=== PATIENT | female | born 1935 ===

== ENCOUNTER 2017-10-17 13:04 | Emergency (ER) | payer MEDICARE ==
--- NOTE | 2017-10-17 13:53 | ED PDOC ---
HPI: General Adult Time Seen by Provider: 10/17/17 13:22 Chief Complaint (Nursing): Back Pain Chief Complaint (Provider): Mental Status Change History Per: Patient, Family (daughter) History/Exam Limitations: no limitations Onset/Duration Of Symptoms: Days Current Symptoms Are (Timing): Still Present Additional Complaint(s): 81 y/o female with a PMHx of HTN presenting for evaluation of mental status change. According to patients daughter, who is a nurse at this hospital, the patient has had intermittent confusion at home and during recent travels where she is unsure where she is. She reports patient was brought to her PMD 3-4 days ago without complaint. She states the patient received a mental status exam and a referral to a neurologist. Patient later began to complain of right sided flank pain and today received an outpatient kidney US which preliminarily showed possible stones. Symptoms led daughter to suspect a possible urinary tract problem and confusion. Daughter reports no fever, nausea, vomiting, diarrhea, or abdominal pain. Patient denies any frequency or dysuria. PMD: Jeffrey Wheatley Past Medical History Reviewed: Historical Data, Nursing Documentation, Vital Signs Vital Signs: Last Vital Signs Temp 98.4 F 10/17/17 13:12 Pulse 63 10/17/17 13:12 Resp 16 10/17/17 13:12 BP 125/72 10/17/17 13:12 Pulse Ox 99 10/17/17 14:42 - Medical History PMH: Arthritis, HTN, Hypercholesterolemia Denies: Chronic Kidney Disease - Surgical History Other surgeries: Hysterectomy - Family History Family History: States: Unknown Family Hx - Social History Current smoker - smoking cessation education provided: No Alcohol: None - Home Medications Home Medications: Ambulatory Orders Medication Instructions Recorded Ammonium Lactate [Amlactin] 1 appl TOP DAILY 09/11/14 Aspirin [Aspirin EC] 81 mg PO DAILY 09/11/14 Clobetasol 0.05% [Temovate CREAM] 1 appl TOP BID PRN 09/11/14 Cyclosporine [Restasis] 1 drop EACHEYE Q12H 09/11/14 Diclofenac Sodium [Voltaren Gel] 1 appl TOP TID 09/11/14 Esomeprazole Magnesium [Nexium] 20 mg PO DAILY 09/11/14 Lisinopril/Hydrochlorothiazide 1 tab PO DAILY 09/11/14 [Lisinopril-Hctz 20-12.5 mg Tab] Loratadine 10 mg PO DAILY 09/11/14 Metoprolol Succinate XL [Toprol XL] 50 mg PO DAILY 09/11/14 Montelukast [Singulair] 10 mg PO HS 09/11/14 Naproxen 500 mg PO BID PRN 09/11/14 Olopatadine 0.1% Opht [Patanol 1 drop EACHEYE BID 09/11/14 0.1% Opht Soln] Cmdyq-8-Incl Ethyl Esters [Lovaza] 1 gm PO BID 09/11/14 Simvastatin [Zocor] 40 mg PO HS 09/11/14 Digoxin [Digitek] 0.25 mg PO DAILY #30 tab 09/12/14 Docusate [Colace] 100 mg PO BID PRN #0 cap 09/12/14 - Allergies Allergies/Adverse Reactions: Allergies Allergy/AdvReac Type Severity Reaction Status Date / Time No Known Allergies Allergy Verified 09/11/14 13:54 Review of Systems ROS Statement: Except As Marked, All Systems Reviewed And Found Negative Constitutional: Positive for: Fever. Negative for: Chills Gastrointestinal: Negative for: Nausea, Vomiting, Abdominal Pain, Diarrhea Genitourinary Female: Negative for: Dysuria, Frequency, Incontinence, Hematuria Physical Exam - Reviewed Nursing Documentation Reviewed: Yes Vital Signs Reviewed: Yes - Physical Exam Appears: Positive for: Non-toxic, No Acute Distress Head Exam: Positive for: ATRAUMATIC, NORMAL INSPECTION, NORMOCEPHALIC Skin: Positive for: Normal Color, Warm, Dry. Negative for: Rash Eye Exam: Positive for: EOMI, Normal appearance, PERRL ENT: Positive for: Normal ENT Inspection Neck: Positive for: Normal, Painless ROM, Supple Cardiovascular/Chest: Positive for: Regular Rate, Rhythm. Negative for: Murmur Respiratory: Positive for: Normal Breath Sounds. Negative for: Respiratory Distress Gastrointestinal/Abdominal: Positive for: Normal Exam, Soft. Negative for: Tenderness Back: Positive for: Normal Inspection. Negative for: L CVA Tenderness, R CVA Tenderness, Vertebral Tenderness Extremity: Positive for: Normal ROM. Negative for: Pedal Edema, Deformity Neurologic/Psych: Positive for: Alert, Oriented. Negative for: Motor/Sensory Deficits - Laboratory Results Result Diagrams: 10/17/17 14:00 10/17/17 14:00 - ECG O2 Sat by Pulse Oximetry: 99 (RA) Pulse Ox Interpretation: Normal Medical Decision Making Medical Decision Makin:28 Impression: Subjective mental status change. Differential diagnoses include, but are not limted to infection such as UTI, pyelonephritis, hydronephrosis, and renal colic. Plan: -CMP -Urine dipstick -CBC w/ differential -Heplock -Urinalysis -Reevaluation Scribe Attestation: Documented by Maurisio Alvarez, acting as a scribe for Farnaz Worthy MD. Provider Scribe Attestation: All medical record entries made by the Scribe were at my direction and personally dictated by me. I have reviewed the chart and agree that the record accurately reflects my personal performance of the history, physical exam, medical decision making, and the department course for this patient. I have also personally directed, reviewed, and agree with the discharge instructions and disposition. Disposition - Clinical Impression Clinical Impression: Memory change - Patient ED Disposition Is Patient to be Admitted: Transfer of Care - Disposition Disposition: Transfer of Care Disposition Time: 14:47 Condition: FAIR Instructions: Mild Cognitive Impairment Forms: [employer] (Thai) Patient Signed Over To: Chery Anton Present On Arrival: None
[2017-10-17 14:12] LABS: BASO % 0.4 % (0.0-2.0); EOS % 0.1 % (0.0-4.0); HEMOGLOBIN 10.4 g/dL (12.0-16.0); LYMPH # 1.6 K/uL (1.0-4.3); LYMPH % 34.8 % (20.0-40.0); MEAN CELL VOLUME 80.7 fl (81.0-99.0); MEAN CORPUSCULAR HEMOGLOBIN 27.2 pg (27.0-31.0); MEAN CORPUSCULAR HGB CONC 33.8 g/dL (33.0-37.0); MONO # 0.3 K/uL (0.0-0.8); MONO % 7.7 % (0.0-10.0); NEUT # 2.6 K/uL (1.8-7.0); NRBC % 0.2 % (0.0-0.0); RBC 3.81 Mil/uL (3.80-5.20); RED CELL DISTRIBUTION WIDTH 14.1 % (11.5-14.5); WHITE BLOOD COUNT 4.5 K/uL (4.8-10.8)
[2017-10-17 14:26] LABS: ALB/GLOB RATIO 1.3 (1.0-2.1); ALBUMIN 4.1 g/dL (3.5-5.0); ALT/SGPT 28 U/L (9-52); AST/SGOT 34 U/L (14-36); BLOOD UREA NITROGEN 15 mg/dl (7-17); CALCIUM 9.7 mg/dL (8.4-10.2); GFR AFRICAN-AMERICAN > 60; GFR NON-AFRICAN AMERICAN > 60
[2017-10-17 15:24] LABS: SQUAMOUS EPITHIAL < 1 /hpf (0-5); URINE BILIRUBIN NEGATIVE (NEGATIVE); URINE BLOOD NEGATIVE (NEGATIVE); URINE CLARITY CLEAR (Clear); URINE COLOR STRAW (YELLOW); URINE GLUCOSE (UA) NEG (Normal); URINE LEUKOCYTE ESTERASE SMALL Leu/uL (Negative); URINE PROTEIN NEGATIVE (NEGATIVE); URINE UROBILINOGEN 0.2-1.0 mg/dL (0.2-1.0)
--- NOTE | 2017-10-17 15:52 | CT ---
Date of service: 10/17/2017 PROCEDURE: CT HEAD WITHOUT CONTRAST. HISTORY: acute onset of memory loss COMPARISON: None available. TECHNIQUE: Axial computed tomography images were obtained through the head/brain without intravenous contrast. Radiation dose: Total exam DLP = mGy-cm. This CT exam was performed using one or more of the following dose reduction techniques: Automated exposure control, adjustment of the mA and/or kV according to patient size, and/or use of iterative reconstruction technique. FINDINGS: HEMORRHAGE: No intracranial hemorrhage. BRAIN: No mass effect or edema. No atrophy or chronic microvascular ischemic changes. VENTRICLES: Unremarkable. No hydrocephalus. CALVARIUM: Unremarkable. PARANASAL SINUSES: Unremarkable as visualized. No significant inflammatory changes. MASTOID AIR CELLS: Unremarkable as visualized. No inflammatory changes. OTHER FINDINGS: None. IMPRESSION: Normal CT of the Head.
--- NOTE | 2017-10-17 16:18 | ED PDOC ---
- Laboratory Results Result Diagrams: 10/17/17 14:00 10/17/17 14:00 - ECG O2 Sat by Pulse Oximetry: 99 (RA) Pulse Ox Interpretation: Normal Medical Decision Making Medical Decision Making: Time: 1500 -- Received endorsement from Dr. Worthy. Patient brought to the ED for episode of memory loss, pending ER workup, re-assessment and final ER disposition. Lab results are unremarkable except for mild anemia. Time: [address] RESULTS FINDINGS: HEMORRHAGE: No intracranial hemorrhage. BRAIN: No mass effect or edema. No atrophy or chronic microvascular ischemic changes. VENTRICLES: Unremarkable. No hydrocephalus. CALVARIUM: Unremarkable. PARANASAL SINUSES: Unremarkable as visualized. No significant inflammatory changes. MASTOID AIR CELLS: Unremarkable as visualized. No inflammatory changes. OTHER FINDINGS: None. IMPRESSION: Normal CT of the Head. Time: 1612 -- Discussed findings with daughter. Patient to follow up with PMD on Thursday for further management. Patient is stable for discharge at this time. _ Scribe Attestation: Documented by Grace Evans acting as a scribe for Dr. Chery Anton. Provider Scribe Attestation: All medical record entries made by the Scribe were at my direction and personally dictated by me. I have reviewed the chart and agree that the record accurately reflects my personal performance of the history, physical exam, medical decision making, and the department course for this patient. I have also personally directed, reviewed, and agree with the discharge instructions and disposition. Disposition Counseled Patient/Family Regarding: Studies Performed, Diagnosis, Need For Followup - Clinical Impression Clinical Impression: Memory change - POA Present On Arrival: None - Disposition Referrals: Jeffrey Wheatley [Family Provider] - Disposition: Routine/Home Disposition Time: 16:21 Condition: FAIR Additional Instructions: FOLLOW UP WITH NEUROLOGY SCHEDULED. Instructions: Evaluating Memory and Thinking Problems Print Language: MAORI
[2017-10-17 17:19] VITALS: BP 122/73; PULSE 78; RESP 17; TEMP 97.8; O2SAT 100
== END 2017-10-17 17:18 | disposition home or self-care (01) ==
LOC: H.ER 13:04
DX: R41.82 Altered mental status, unspecified (principal)